=== PATIENT | male | born 1970 | race African-American/Black ===

== ENCOUNTER 2016-10-18 22:13 | Observation (INO) | payer OTHER ==
[~2016-10-18] VITALS: Ht 172.7 cm; Wt 63.8 kg
[~2016-10-18 22:13] MED LIST: ABILIFY2 MG PO; AMBIEN5 M1; CLONAZEPAM2 MG PO; COUMADIN5 MG PO; DEPAKOTE250 MG PO; FLEXERIL10 MG PO; LITHIUM CARBON150 MG PO; LORTAB 5-325 M1 EACH PO; LOVENOX60 MG/0.6 SC; NAPROSYN500 MG PO; PEPCID20 MG PO; PERCOCET 10-321 EACH PO; PREDNISONE50 MG PO; SAPHRIS5 MG; TRILEPTAL300 MG PO; ULTRAM50 MG PO; XANAX2 MG PO
[2016-10-18 23:02] LABS: HEMATOCRIT 41.3 % (38.0-50.0); MCH 31.3 PG (29.0-34.0); MCHC 34.1 G/DL (30.0-36.0); MCV 91.6 FL (86-99); MEAN PLAT.VOLUME 9.8 uM^3 (9.0-12.4); PLATELET COUNT 232 K/uL (156-360); RBC DIS.WIDTH-CV 13.5 % (11.8-14.6); RBC DIS.WIDTH-SD 44.5 % (39-53); RED BLOOD COUNT 4.51 M/uL (4.00-5.50); WHITE BLOOD COUNT 7.8 K/uL (4.1-10.2)
[2016-10-18 23:16] LABS: CHLORIDE 106 mEq/L (99-109); D-DIMER ELISA 0.29 mg/L FEU (< 0.57); INTER. NORMALIZED RATIO 1.1; POTASSIUM 3.8 mEq/L (3.7-5.4); PROTHROMBIN TIME 11.6 (9.2-11.2); SODIUM 141 mEq/L (136-147)
[2016-10-18 23:17] LABS: GLUCOSE 126 mg/dL (70-99)
[2016-10-18 23:19] LABS: ANION GAP 10 MEQ/L (2-14)
[2016-10-18 23:21] LABS: GFR ESTIMATE (CALCULATED) > 59 mL/min/
[2016-10-18 23:22] LABS: UREA NITROGEN (BUN) 12 mg/dL (9-23)
[2016-10-18 23:25] LABS: TROP-I INTERPRETATION NEGATIVE; TROPONIN-I < 0.01 ng/mL (0.0-0.30)
[2016-10-19 05:41] LABS: TROP-I INTERPRETATION NEGATIVE; TROPONIN-I < 0.01 ng/mL (0.0-0.30)
[2016-10-19 06:20] LABS: HDL CHOLESTEROL 32 MG/DL (Desirable>=40); LDL CHOLESTEROL 101 mg/dL (Desirable<100); NON-HDL CHOLESTEROL 110 mg/dL (Desirable<160); TOTAL CHOLESTEROL 142 mg/dL (Desirable<200); TRIGLYCERIDES 47 MG/DL (Normal: <150)
[2016-10-19 07:40] VITALS: BP 140/91
[2016-10-19 11:27] VITALS: BP 101/72
[2016-10-19 12:07] LABS: TROP-I INTERPRETATION NEGATIVE; TROPONIN-I < 0.01 ng/mL (0.0-0.30)
[2016-10-19] MEDS ORDERED: PRAVASTATIN SOD10 MG PO (15:04)
[2016-10-19] MEDS ORDERED: ASPIR 8181 M1 PO (15:04)
== END 2016-10-19 16:00 ==
LOC: EME → EDBD 22:13 → EME 22:13 → 5WEST 23:57 → EDOF 23:57 → 5WEST 10-19 07:27
PROVIDERS: Physician Assistant Medical
DX: R07.89 Other chest pain (principal); R94.31 Abnormal electrocardiogram [ECG] [EKG]; E78.5 Hyperlipidemia, unspecified; F17.210 Nicotine dependence, cigarettes, uncomplicated; Z96.642 Presence of left artificial hip joint; Z96.612 Presence of left artificial shoulder joint; Z87.898 Personal history of other specified conditions; Z88.0 Allergy status to penicillin; Z88.6 Allergy status to analgesic agent; Z88.5 Allergy status to narcotic agent; Z88.8 Allergy status to other drugs, medicaments and biological substances
CPT/HCPCS: 71020; 80048; 80061; 84484; 85027; 85379; 85610; 85730; 93005; 93017; 99281; 99285; G0378; J1644; J1885; J3010; J7030